=== PATIENT | male | born 1965 | race Two or more races ===

== ENCOUNTER 2016-06-26 01:27 | Emergency (ER) | payer BC ==
[~2016-06-26] VITALS: Ht 177.8 cm; Wt 81.6 kg
[2016-06-26 02:50] VITALS: BP 126/77
[2016-06-26] MEDS ORDERED: ACETAMINOPHEN ES 500 MG TABLET ONE (03:23)
[2016-06-26] MEDS ORDERED: ACETAMINOPHEN 325 MG TABLET PO ONE (03:30)
== END 2016-06-26 03:34 | disposition home or self-care (01) ==
LOC: ER 01:29
DX: J40 Bronchitis, not specified as acute or chronic (principal); J06.9 Acute upper respiratory infection, unspecified
CPT/HCPCS: 71010; 99283; A4606; Z7610